=== PATIENT | female | born 2000 | race Caucasian/White ===

== ENCOUNTER 2018-10-22 10:17 | Inpatient (IN) | payer OTHER ==
[~2018-10-22] VITALS: Ht 165.1 cm; Wt 52.6 kg
[2018-10-22] MEDS ORDERED: BIRTH CONTROL PO (10:43)
[2018-10-22 10:53] LABS: BASO # 0.1 (0.0-0.2); BASO % 1.7 % (0.0-2.0); EOS % 0.7 % (0-4.0); GRAN # 1.2 (1.4-6.5); GRAN % 39.1 % (42.2-75.2); HEMATOCRIT 39.7 % (35.0-45.0); HEMOGLOBIN 13.1 g/dl (12.0-15.0); LYMPH # 1.5 (1.2-3.4); LYMPH % 49.5 % (20.0-51.0); MEAN CELL VOLUME 90 fl (80.0-95.0); MEAN CORPUSCULAR HEMOGLOBIN 30 pg (26.0-32.0); MEAN CORPUSCULAR HGB CONC 33 g/dl (33.0-37.0); MEAN PLATELET VOLUME 12.2 fl (7.4-10.4); MONO # 0.3 (0.1-0.6); PLATELET COUNT 205 K/mm3 (130-400); RED BLOOD COUNT 4.39 M/mm3 (4.10-5.30); REDCELL DISTRIBUTION WIDTH-CV 14.4 % (11.5-14.5)
[2018-10-22 11:06] LABS: ALBUMIN 4.2 gm/dL (3.5-5.0); BILIRUBIN,TOTAL 0.6 mg/dL (0.0-1.0); CALCIUM 9.2 mg/dL (8.4-10.2); CREATININE, serum 1.34 mg/dL (0.52-1.25); MAGNESIUM 2.1 mg/dL (1.6-2.3); TOTAL PROTEIN 7.1 gm/dL (6.4-8.2)
[2018-10-22 11:36] LABS: TSH w REFLEX 1.94 uIU/mL (0.465-4.680)
[2018-10-22 16:01] VITALS: BP 101/54; PULSE 44; TEMP 97.9
[2018-10-22 17:58] LABS: COLLECTION METHOD CLEAN CATCH
[2018-10-22 18:06] LABS: MUCOUS Present /lpf; PH 7 (5-8); SQUAMOUS EPITHELIAL 0-2 /hpf; URINE APPEARANCE Clear; URINE BACTERIA None Seen /hpf; URINE BILIRUBIN Negative (NEGATIVE); URINE BLOOD Negative (NEGATIVE); URINE COLOR Colorless; URINE GLUCOSE Negative (NEGATIVE); URINE KETONE Negative (NEGATIVE); URINE LEUKOCYTE ESTERASE Negative (NEGATIVE); URINE NITRATE Negative (NEGATIVE); URINE PROTEIN(semi-quant) Negative (NEGATIVE); URINE RBC 0-2 /hpf; URINE UROBILINOGEN Negative (NEGATIVE)
[2018-10-22 18:18] LABS: URINE PROTEIN:CREAT RATIO 1.68 (0.00-0.14)
[2018-10-22 22:12] VITALS: BP 103/52; PULSE 40; TEMP 97.6
[2018-10-23] VITALS (10 sets, daily range): BP systolic 70–107; BP diastolic 26–56; PULSE 36–92; TEMP 97.8–98.3
[2018-10-23 08:40] LABS: BASO % 0.9 % (0.0-2.0); EOS % 0.2 % (0-4.0); GRAN # 2.2 (1.4-6.5); HEMOGLOBIN 13.1 g/dl (12.0-15.0); LYMPH % 43.5 % (20.0-51.0); MEAN CELL VOLUME 92 fl (80.0-95.0); MEAN CORPUSCULAR HEMOGLOBIN 30 pg (26.0-32.0); MEAN CORPUSCULAR HGB CONC 33 g/dl (33.0-37.0); MEAN PLATELET VOLUME 12.4 fl (7.4-10.4); MONO # 0.3 (0.1-0.6); MONO % 7.2 % (1.7-9.3); PLATELET COUNT 215 K/mm3 (130-400); RED BLOOD COUNT 4.37 M/mm3 (4.10-5.30); REDCELL DISTRIBUTION WIDTH-CV 14.6 % (11.5-14.5)
[2018-10-23 08:45] LABS: CALCIUM 9.1 mg/dL (8.4-10.2); CREATININE, serum 1.21 mg/dL (0.52-1.25); POTASSIUM 4.1 mmol/L (3.4-5.0)
[2018-10-23] MEDS ORDERED: PERIACTIN 4MG TA4 MG PO (15:40)
[2018-10-24 01:57] LABS: COMPLEMENT-C3 83 mg/dL (79-152); COMPLEMENT-C4 15 mg/dL (18-55)
[2018-10-24 22:25] LABS: C-ANCA 11 U/mL (0-99)
[2018-10-25 00:06] LABS: ANA SCREEN with REFLEX Negative (Negative)
== END 2018-10-23 17:32 | disposition home or self-care (01) | DRG 683 ==
LOC: COL.ER 10:17 → MEDICAL 11:37
PROVIDERS: Emergency Medicine; Internal Medicine; Physician Assistant
DX: N17.9 Acute kidney failure, unspecified (principal); F50.00 Anorexia nervosa, unspecified; E46 Unspecified protein-calorie malnutrition; Z68.1 Body mass index [BMI] 19.9 or less, adult; N18.3 Chronic kidney disease, stage 3 (moderate); I95.1 Orthostatic hypotension; R00.2 Palpitations
CPT/HCPCS: 99223-AI; 99239; J2405; J7030; J7120

== ENCOUNTER → 2021-02-13 | Outpatient (CLI) | payer OTHER ==
[~2021-02-13] MED LIST: BIRTH CONTROL PO; PERIACTIN 4MG TA4 MG PO
== END ==
LOC: COL.RAD 07:45
DX: N91.2 Amenorrhea, unspecified (principal)